=== PATIENT | female | born 1980 | race Two or more races ===

== ENCOUNTER 2016-09-04 00:41 | Emergency (ER) | payer MEDICAID ==
[~2016-09-04] VITALS: Ht 154.9 cm; Wt 68.0 kg
[~2016-09-04 00:41] MED LIST: NOR5T PO
[2016-09-04 00:50] VITALS: BP 132/68
== END 2016-09-04 02:27 | disposition home or self-care (01) ==
LOC: ER 00:43
DX: J40 Bronchitis, not specified as acute or chronic (principal); F15.10 Other stimulant abuse, uncomplicated